=== PATIENT | female | born 1960 | race Caucasian/White ===

== ENCOUNTER → 2020-04-26 08:21 | Outpatient (BNVA) | payer OTHER, SELFPAY | PROVIDERS: PCP Internal Medicine; Visit Provider Nurse Practitioner Gerontology | DX: E11.65 Type 2 diabetes mellitus with hyperglycemia (principal); E78.5 Hyperlipidemia, unspecified; I10 Essential (primary) hypertension; E66.09 Other obesity due to excess calories; Z68.41 Body mass index [BMI] 40.0-44.9, adult | CPT/HCPCS: 82947 ==

== ENCOUNTER → 2020-05-02 15:31 | Outpatient (BNVA) | payer OTHER, SELFPAY | PROVIDERS: PCP Internal Medicine; Visit Provider Internal Medicine Cardiovascular Disease | DX: Z76.89 Persons encountering health services in other specified circumstances (principal) ==

== ENCOUNTER → 2020-05-27 12:54 | Outpatient (REF) | payer OTHER, SELFPAY ==
--- NOTE | 2020-05-27 12:58 | ECG_ITS ---
Hook-up date: 2020-05-27 13:04:00 Duration: 43:40:00 Test Indications: SVT Medications: 197737 QRS complexes 151 Ventricular ectopics which represent <1 % of total QRS comp. 6966 Supraventricular ectopics which represent 5 % of total QRS comp. * Paced QRS complexs which represent % of total QRS comp. VENTRICULAR ECTOPY 126 Isolated 7 Bigeminal Cycles 11 Couplets 1 Runs 3 Beats in Runs 3 Beats LONGEST at 202 BPM at 14:43:40 2020-05-27 3 Beats FASTEST at 202 BPM at 14:43:40 2020-05-27 SUPRAVENTRICULAR ECTOPY 4849 Isolated 725 Couplets 167 Runs 667 Beats in Runs 54 Beats LONGEST at 151 BPM at 17:21:17 2020-05-27 4 Beats FASTEST at 222 BPM at 16:31:31 2020-05-27 HEART RATES 57 MIN at 00:54:05 2020-05-28 91 AVG 190 MAX at 17:21:15 2020-05-27 LONGEST RR 1.1440 secs at 00:54:02 2020-05-28 S-T LEVELS Channel 1 - 128 mm at 13:04:00 2020-05-27 - 128 mm at 13:04:00 2020-05-27 Channel 2 - 128 mm at 13:04:00 2020-05-27 - 128 mm at 13:04:00 2020-05-27 Channel 3 - 128 mm at 03:22:31 -- - 128 mm at 03:22:31 Basic rhythm Normal sinus rhythm No long pause or profound bradycardia Occasional Premature ventricular complexes 2 episodes of NSVT, 3 beats at 202 bpm Frequent Premature atrial complexes Multiple short runs of SVT, longest 54 beats at 151 bpm. No diary submitted Referred By: Mateo Bhatia Overread By: CACHORRO RAZO MD
== END ==
LOC: HO.CARD 12:54
PROVIDERS: Visit Provider Internal Medicine Cardiovascular Disease
DX: I47.1 Supraventricular tachycardia (principal)
CPT/HCPCS: 93225; 93226

== ENCOUNTER 2020-06-27 10:22 | Outpatient (REF) | payer OTHER, SELFPAY | END 2020-06-27 10:23 | disposition home or self-care (01) | LOC: HO.LAB 10:22 | PROVIDERS: Visit Provider Internal Medicine | DX: Z20.828 Contact with and (suspected) exposure to other viral communicable diseases (principal) | CPT/HCPCS: 36415; C9803; U0003 ==

== ENCOUNTER → 2020-08-02 10:49 | Outpatient (BNVA) | payer OTHER, SELFPAY | PROVIDERS: PCP Internal Medicine; Visit Provider Nurse Practitioner Gerontology | DX: E11.65 Type 2 diabetes mellitus with hyperglycemia (principal); E78.5 Hyperlipidemia, unspecified; I10 Essential (primary) hypertension; E66.01 Morbid (severe) obesity due to excess calories; Z68.41 Body mass index [BMI] 40.0-44.9, adult | CPT/HCPCS: 82947 ==

== ENCOUNTER → 2020-09-12 11:04 | Outpatient (BNVA) | payer OTHER, SELFPAY | PROVIDERS: PCP Internal Medicine; Visit Provider Internal Medicine Cardiovascular Disease | DX: I47.1 Supraventricular tachycardia (principal); I10 Essential (primary) hypertension | CPT/HCPCS: 93005 ==

== ENCOUNTER → 2020-09-13 15:04 | Outpatient (BNV) | payer MEDICARE, OTHER, SELFPAY | PROVIDERS: PCP Internal Medicine; Visit Provider Internal Medicine Medical Oncology | DX: C88.4 Extranodal marginal zone B-cell lymphoma of mucosa-associated lymphoid tissue [MALT-lymphoma] (principal) | CPT/HCPCS: 99213; 99214 ==

== ENCOUNTER → 2020-09-20 12:14 | Outpatient (BNVA) | payer OTHER, SELFPAY | PROVIDERS: PCP Internal Medicine; Visit Provider Nurse Practitioner Gerontology | DX: E11.65 Type 2 diabetes mellitus with hyperglycemia (principal); E78.5 Hyperlipidemia, unspecified; I10 Essential (primary) hypertension; E66.01 Morbid (severe) obesity due to excess calories; Z68.41 Body mass index [BMI] 40.0-44.9, adult | CPT/HCPCS: 82947 ==

== ENCOUNTER → 2020-10-24 14:47 | Outpatient (REF) | payer OTHER, SELFPAY ==
--- NOTE | 2020-10-24 14:50 | CA_ITS ---
Transthoracic Echocardiogram Patient (Last, First, Middle): Va Noel J Gender: Female Date of : 1960 Age: 60 Procedure Date: 10/24/2020 Procedure Type: Transthoracic Echocardiogram Location: OP Height: 170.18 cm Weight: 113.4 kg BSA: 2.22 m2 Heart Rate: bpm BP: 110 / 60 mmHg Senior Laboratory Technician: JASON Referring MD: Mateo Bhatia MD Symptoms: I47.1 - Supraventricular tachycardia Study Quality: Technically Difficult ECG Rhythm: Sinus Conclusions: - The left ventricular systolic function is normal. The visually estimated ejection fraction is between 65-70%. - There is mild mitral annular calcification. - No obvious valvular pathology seen on this study. Findings Procedure Information The patient declines contrast. Left Ventricle Normal left ventricular cavity size. There is mildly increased left ventricular wall thickness. The left ventricular systolic function is normal. The visually estimated ejection fraction is between 65-70%. There is no evidence of regional wall motion abnormalities. Diastolic function is normal for age. Right Ventricle Normal right ventricular cavity size and systolic function. Atria Both atria are normal in size. Aortic Valve There is a normal trileaflet aortic valve. There is no aortic valve stenosis. There is no aortic valve regurgitation. Mitral Valve The mitral valve appears normal. There is mild mitral annular calcification. There is mild mitral valve regurgitation. There is no mitral valve stenosis. Pulmonic Valve The pulmonic valve was not well visualized. Tricuspid Valve There is trace tricuspid valve regurgitation. The pulmonary artery systolic pressure is normal. Great Vessels The aortic annulus, sinuses of valsalva, and asc aorta are normal in size. Venous The inferior vena cava is mildly dilated and collapses greater than 50% with inspiration. Pericardium/Pleural There is no evidence of pericardial effusion. Prior Study Comparison No significant change compared to prior study dated: 07/27/2019. Recommendations, Care & Conclusions No obvious valvular pathology seen on this study. Measurements 2D Linear Measurements IVSd: 1.24 0.6-0.9/0.6-1.0 cm LVIDd: 4.37 3.9-5.3/4.2-5.9 cm LVIDd Index: 1.97 2.4-3.2/2.2-3.1 cm/m2 LVIDs: 2.75 2.0-3.6 cm LVPWd: 1.22 0.7-1.1 cm Ao Root: 3.50 2.1-3.5 cm LA Diam: 4.20 2.7-3.8/3.0-4.0 cm LAIDs Index: 1.89 1.5-2.3 cm/m2 LV Mass: 244.56 67-162/88-224 g LV Mass Index: 110.16 43-95/49-115 g/m2 LVOT Diam: 2.10 3.0+(-)1.3 cm Mitral Valve MV Pk E: 1.15 MV PK A: 0.89 MV Decel Time: 162.00 E/A: 1.30 E'Lateral: 9.67 E'Medial: 6.48 E/E' Med: 17.70 E/E' Lat: 11.90 PHT: 47.00 MVA PHT: 4.68 Decel Wake: 7.13 Aortic Valve AoV Pk Noble: 1.70 AoV Mn Noble: 1.01 AoV VTI: 0.32 AoV Pk Grad: 12.00 Aov Mn Grad: 5.00 SAMMIE Cont.VTI: 2.08 LVOT LVOT Pk Noble: 0.91 LVOT Mn Noble: 0.67 LVOT VTI: 0.19 LVOT Pk Grad: 3.00 LVOT Mn Grad: 2.00 LVOT Diam: 2.10 LVOT Area: 3.46 Diastolic Function MV Pk E: 1.15 MV Pk A: 0.89 E/A: 1.30 E'Medial: 6.48 E/E' Med: 17.70 E' Laterial: 9.67 E/E' Lat: 11.90 Tricuspid Valve TR Pk Noble: 2.52 TR Pk Grad: 25.00 RA Press: 8.00 RVSP: 33.00 Great Vessels Aorta Ao Root-2D: 3.50 2.0-3.7 cm Ao Asc: 3.20 2.1-3.4 cm Ao Arch: 3.00 Updated in Other Vendor System with Status of Final Nate Lal MD electronically signed on 10/26/2020 3:33:06 PM with status of Final
== END ==
LOC: HO.CARD 14:47
PROVIDERS: Visit Provider Internal Medicine Cardiovascular Disease
DX: I47.1 Supraventricular tachycardia (principal)
CPT/HCPCS: 93306

== ENCOUNTER → 2020-12-27 10:48 | Outpatient (BNVA) | payer OTHER, SELFPAY | PROVIDERS: PCP Internal Medicine; Visit Provider Nurse Practitioner Gerontology | DX: E11.65 Type 2 diabetes mellitus with hyperglycemia (principal); E78.5 Hyperlipidemia, unspecified; I10 Essential (primary) hypertension; E66.01 Morbid (severe) obesity due to excess calories; Z68.41 Body mass index [BMI] 40.0-44.9, adult | CPT/HCPCS: 82947 ==

== ENCOUNTER 2021-05-27 10:43 | Outpatient (REF) | payer OTHER, SELFPAY ==
[2021-05-27 11:07] LABS: Estimated Average Glucose 189 mg/dL; Hemoglobin A1c % 8.2 %
[2021-05-27 11:19] LABS: Alanine Aminotransferase 26 U/L (0-31); Albumin Level 4.1 g/dL (3.5-5.0); Alkaline Phosphatase 67 U/L (39-117); Aspartate Amino Transferase 22 U/L (5-31); Bilirubin Direct 0.2 mg/dL (0.0-0.5); Bilirubin Total 0.7 mg/dL (0.0-1.0); Cholesterol 183 mg/dL; Glucose Fasting 264 mg/dL (60-99); HDL Cholesterol 30 mg/dL; LDL Cholesterol Calculated 130 mg/dl; Total Protein 7.5 g/dL (6.5-8.0); Triglycerides 118 mg/dL
[2021-05-27 11:25] LABS: Creatinine Urine 55.23 mg/dL; Microalbum/Creatinine Ratio Ur 18.1 ug/mg cr
[2021-05-27 11:51] LABS: Reflex LDLD? No
== END 2021-05-27 10:44 | disposition home or self-care (01) ==
LOC: HO.LNP 10:43
PROVIDERS: Visit Provider Internal Medicine
DX: E11.65 Type 2 diabetes mellitus with hyperglycemia (principal); E78.00 Pure hypercholesterolemia, unspecified
CPT/HCPCS: 80061; 80076; 82043; 82947; 83036

== ENCOUNTER → 2021-06-27 11:59 | Outpatient (BNVA) | payer OTHER, SELFPAY | PROVIDERS: PCP Internal Medicine; Visit Provider Nurse Practitioner Gerontology | DX: E11.65 Type 2 diabetes mellitus with hyperglycemia (principal); E78.5 Hyperlipidemia, unspecified; E66.01 Morbid (severe) obesity due to excess calories; I10 Essential (primary) hypertension; Z68.41 Body mass index [BMI] 40.0-44.9, adult; Z79.4 Long term (current) use of insulin; Z79.84 Long term (current) use of oral hypoglycemic drugs | CPT/HCPCS: 82947 ==

== ENCOUNTER 2021-09-13 07:25 | Outpatient (REF) | payer OTHER, SELFPAY ==
[2021-09-13 08:41] LABS: Alanine Aminotransferase 16 U/L (0-31); Albumin Level 3.8 g/dL (3.5-5.0); Alkaline Phosphatase 64 U/L (39-117); Anion Gap 9 (12-20); Aspartate Amino Transferase 17 U/L (5-31); Bilirubin Total 0.4 mg/dL (0.0-1.0); Blood Urea Nitrogen 13 mg/dL (9-16); Calcium 9.5 mg/dL (8.4-10.2); Carbon Dioxide 26 mmol/L (22-29); Chloride 111 mmol/L (96-108); Cholesterol 98 mg/dL; Estimated Glomerular Filt Rate > 60; Glucose Fasting 92 mg/dL (60-99); HDL Cholesterol 25 mg/dL; LDL Cholesterol Calculated 59 mg/dl; Potassium 4.4 mmol/L (3.3-5.1); Sodium 142 mmol/L (135-145); Total Protein 6.8 g/dL (6.5-8.0); Triglycerides 72 mg/dL
[2021-09-14 07:06] LABS: LDL Cholesterol Direct 59 mg/dL (<100)
== END 2021-09-13 07:26 | disposition home or self-care (01) ==
LOC: HO.LAB 07:25
PROVIDERS: PCP Internal Medicine; Visit Provider Nurse Practitioner Gerontology
DX: E11.65 Type 2 diabetes mellitus with hyperglycemia (principal)
CPT/HCPCS: 36415; 80053; 80061; 83721

== ENCOUNTER → 2021-10-03 10:14 | Outpatient (BNVA) | payer OTHER, SELFPAY | PROVIDERS: PCP Internal Medicine; Visit Provider Nurse Practitioner Gerontology | DX: E11.65 Type 2 diabetes mellitus with hyperglycemia (principal); I10 Essential (primary) hypertension; C85.83 Other specified types of non-Hodgkin lymphoma, intra-abdominal lymph nodes; E78.5 Hyperlipidemia, unspecified; E66.01 Morbid (severe) obesity due to excess calories; Z68.41 Body mass index [BMI] 40.0-44.9, adult; Z79.4 Long term (current) use of insulin; Z79.899 Other long term (current) drug therapy | CPT/HCPCS: 82947; 83036 ==

== ENCOUNTER 2021-11-27 10:44 | Outpatient (REF) | payer OTHER, SELFPAY ==
[2021-11-27 11:16] LABS: Estimated Average Glucose 177 mg/dL; Hemoglobin A1c % 7.8 %
[2021-11-27 11:27] LABS: Alanine Aminotransferase 18 U/L (0-31); Albumin Level 4.1 g/dL (3.5-5.0); Alkaline Phosphatase 63 U/L (39-117); Aspartate Amino Transferase 17 U/L (5-31); Bilirubin Direct 0.2 mg/dL (0.0-0.5); Bilirubin Total 0.5 mg/dL (0.0-1.0); Cholesterol 96 mg/dL; Glucose Fasting 116 mg/dL (60-99); HDL Cholesterol 26 mg/dL; LDL Cholesterol Calculated 56 mg/dl; Total Protein 7.2 g/dL (6.5-8.0); Triglycerides 73 mg/dL
[2021-11-27 12:25] LABS: Reflex LDLD? No
== END 2021-11-27 10:45 | disposition home or self-care (01) ==
LOC: HO.LNP 10:44
PROVIDERS: Visit Provider Internal Medicine
DX: E11.65 Type 2 diabetes mellitus with hyperglycemia (principal); E78.00 Pure hypercholesterolemia, unspecified
CPT/HCPCS: 80061; 80076; 82947; 83036

== ENCOUNTER 2022-12-01 14:37 | Outpatient (REF) | payer OTHER, SELFPAY ==
[2022-12-01 15:13] LABS: Appearance Urine Clear; Color Urine Yellow; Glucose Urine UA Negative (Negative); Leukocyte Esterase Urine Trace (Negative); Nitrite Urine Negative (Negative); PH 6.5 (5.0-9.0); Specific Gravity - Urine <= 1.005 (1.005-1.025); UMIC TRIGGER UACC YES; Urine Blood Negative (Negative); Urine Ketones Negative (Negative); Urine Protein Negative (Neg-Trace)
[2022-12-01 15:18] LABS: Bacteria Urine None Seen (None Seen); Hyaline Casts Urine 0-2 /LPF (0-2); RBC Urine 0-2 /HPF (0-2); Squamous Epithelial Cell Urine 0-2 /HPF (0-2); WBC Urine 0-5 /HPF (0-5)
[2022-12-01 15:29] LABS: Basophils Absolute Auto 0.1 X10*3/uL (0.0-0.2); Basophils Percent Auto 0.8 % (0-2); Eosinophils Absolute Auto 0.3 X10*3/uL (0.0-0.4); Eosinophils Percent Auto 2.7 % (0-4); Hematocrit 45.7 % (37.0-47.0); Hemoglobin 14.2 g/dl (12.0-16.0); Imm Gran Abs Auto 0.03 X10*3/uL (0.00-0.03); Imm Gran Pct Auto 0.3 % (0.0-0.4); Lymphocytes Absolute Auto 2.6 X10*3/uL (1.2-4.9); Lymphocytes Percent Auto 22.9 % (20-40); MANUAL DIFF FLAG SCAN; Mean Corpuscular HGB Conc 31.1 g/dl (31.0-35.0); Mean Corpuscular Volume 96.4 fL (80.0-98.0); Mean Platelet Volume 13.2 fL (9.4-12.3); Monocytes Absolute Auto 0.8 X10*3/uL (0.1-1.2); Monocytes Percent Auto 7.1 % (2-11); Neutrophils Absolute Auto 7.7 x10*3/uL (2.0-8.3); Neutrophils Percent Auto 66.2 % (45-73); PLT CLUMP 1; Red Blood Count 4.74 X10*6/uL (4.20-5.50); Red Cell Distribution Width 14.2 % (11.0-16.0); SCAN SMEAR FLAG 1
[2022-12-01 15:34] LABS: Estimated Average Glucose 212 mg/dL
[2022-12-01 15:46] LABS: Creatinine Urine 16.24 mg/dL; Microalbum/Creatinine Ratio Ur 55.4 ug/mg cr
[2022-12-01 15:47] LABS: Alanine Aminotransferase 18 U/L (0-31); Albumin Level 4.1 g/dL (3.5-5.0); Alkaline Phosphatase 65 U/L (39-117); Anion Gap 16 (12-20); Aspartate Amino Transferase 19 U/L (5-31); Bilirubin Direct 0.2 mg/dL (0.0-0.5); Bilirubin Total 0.7 mg/dL (0.0-1.0); Blood Urea Nitrogen 9 mg/dL (9-16); Calcium 10.4 mg/dL (8.4-10.2); Carbon Dioxide 26 mmol/L (22-29); Chloride 107 mmol/L (96-108); Cholesterol 108 mg/dL; Estimated Glomerular Filt Rate > 60; Glucose Fasting 101 mg/dL (60-99); HDL Cholesterol 27 mg/dL; LDL Cholesterol Calculated 58 mg/dl; Potassium 4.5 mmol/L (3.3-5.1); Sodium 144 mmol/L (135-145); Total Protein 7.3 g/dL (6.5-8.0); Triglycerides 118 mg/dL
[2022-12-01 16:05] LABS: Platelet Count 154 X10*3/uL (160-400); White Blood Count 11.6 X10*3/uL (4.8-10.8)
[2022-12-01 16:08] LABS: SLIDE REVIEW VERIFIED
== END 2022-12-01 14:38 | disposition home or self-care (01) ==
LOC: HO.LNP 14:37
PROVIDERS: Visit Provider Internal Medicine
DX: Z00.00 Encounter for general adult medical examination without abnormal findings (principal); E11.65 Type 2 diabetes mellitus with hyperglycemia; R79.89 Other specified abnormal findings of blood chemistry; E78.00 Pure hypercholesterolemia, unspecified
CPT/HCPCS: 80053; 80061; 80076; 81001; 82043; 82248; 83036; 85025

== ENCOUNTER 2023-01-01 11:28 | Outpatient (REF) | payer OTHER, SELFPAY | END 2023-01-01 11:29 | disposition home or self-care (01) | LOC: HO.LNP 11:28 | PROVIDERS: Visit Provider Internal Medicine | DX: E83.52 Hypercalcemia (principal) | CPT/HCPCS: 82310 ==

== ENCOUNTER 2023-01-08 09:49 | Outpatient (REF) | payer OTHER, SELFPAY ==
[2023-01-08 11:13] LABS: Alanine Aminotransferase 18 U/L (0-31); Albumin Level 3.9 g/dL (3.5-5.0); Alkaline Phosphatase 61 U/L (39-117); Aspartate Amino Transferase 21 U/L (5-31); Bilirubin Direct 0.2 mg/dL (0.0-0.5); Bilirubin Total 0.7 mg/dL (0.0-1.0); Blood Urea Nitrogen 9 mg/dL (9-16); Carbon Dioxide 26 mmol/L (22-29); Chloride 107 mmol/L (96-108); Estimated Glomerular Filt Rate > 60; Glucose Random 199 mg/dL (60-115); Lipase 6 U/L (8-78); Potassium 4.2 mmol/L (3.3-5.1); Sodium 139 mmol/L (135-145)
[2023-01-08 11:25] LABS: Amylase 35 U/L (28-100); Anion Gap 14 (12-20)
== END 2023-01-08 09:50 | disposition home or self-care (01) ==
LOC: HO.LAB 09:49
PROVIDERS: PCP Internal Medicine; Visit Provider Internal Medicine
DX: R11.10 Vomiting, unspecified (principal); R10.13 Epigastric pain
CPT/HCPCS: 36415; 80048; 80076; 82150; 83690

== ENCOUNTER 2023-01-13 14:50 | Outpatient (REF) | payer OTHER, SELFPAY ==
[2023-01-13 15:02] LABS: MANUAL DIFF FLAG NO
[2023-01-13 15:59] LABS: Basophils Absolute Auto 0.1 X10*3/uL (0.0-0.2); Basophils Percent Auto 0.6 % (0-2); Eosinophils Absolute Auto 0.2 X10*3/uL (0.0-0.4); Eosinophils Percent Auto 2.5 % (0-4); Hematocrit 38.4 % (37.0-47.0); Hemoglobin 12.4 g/dl (12.0-16.0); Imm Gran Abs Auto 0.03 X10*3/uL (0.00-0.03); Imm Gran Pct Auto 0.4 % (0.0-0.4); Lymphocytes Absolute Auto 2.6 X10*3/uL (1.2-4.9); Lymphocytes Percent Auto 31.8 % (20-40); Mean Corpuscular HGB Conc 32.3 g/dl (31.0-35.0); Mean Corpuscular Hemoglobin 29.7 pg (27.0-33.0); Mean Corpuscular Volume 92.1 fL (80.0-98.0); Mean Platelet Volume 12.8 fL (9.4-12.3); Monocytes Absolute Auto 0.7 X10*3/uL (0.1-1.2); Monocytes Percent Auto 8.3 % (2-11); Neutrophils Absolute Auto 4.6 x10*3/uL (2.0-8.3); Neutrophils Percent Auto 56.4 % (45-73); Platelet Count 179 X10*3/uL (160-400); Red Blood Count 4.17 X10*6/uL (4.20-5.50); Red Cell Distribution Width 13.8 % (11.0-16.0); White Blood Count 8.1 X10*3/uL (4.8-10.8)
[2023-01-13 19:51] LABS: Alanine Aminotransferase 14 U/L (0-31); Albumin Level 3.9 g/dL (3.5-5.0); Alkaline Phosphatase 64 U/L (39-117); Anion Gap 16 (12-20); Aspartate Amino Transferase 15 U/L (5-31); Bilirubin Direct 0.2 mg/dL (0.0-0.5); Bilirubin Total 0.5 mg/dL (0.0-1.0); Blood Urea Nitrogen 16 mg/dL (9-16); Calcium 9.6 mg/dL (8.4-10.2); Carbon Dioxide 20 mmol/L (22-29); Chloride 104 mmol/L (96-108); Estimated Glomerular Filt Rate 57; Glucose Random 438 mg/dL (60-115); Lipase 5 U/L (8-78); Potassium 4.1 mmol/L (3.3-5.1); Sodium 136 mmol/L (135-145); Total Protein 7.1 g/dL (6.5-8.0)
[2023-01-14 05:48] LABS: Amylase 31 U/L (28-100)
== END 2023-01-13 14:51 | disposition home or self-care (01) ==
LOC: HO.LAB 14:50
PROVIDERS: PCP Internal Medicine; Visit Provider Internal Medicine
DX: R11.10 Vomiting, unspecified (principal); R10.13 Epigastric pain
CPT/HCPCS: 36415; 80048; 80076; 82150; 83690; 85025

== ENCOUNTER 2023-02-01 08:45 | Outpatient (REF) | payer OTHER, SELFPAY ==
[2023-02-01 09:01] LABS: MANUAL DIFF FLAG NO
[2023-02-01 09:06] LABS: Basophils Absolute Auto 0.1 X10*3/uL (0.0-0.2); Basophils Percent Auto 0.6 % (0-2); Eosinophils Absolute Auto 0.2 X10*3/uL (0.0-0.4); Eosinophils Percent Auto 2.3 % (0-4); Hematocrit 38.8 % (37.0-47.0); Hemoglobin 12.6 g/dl (12.0-16.0); Imm Gran Abs Auto 0.03 X10*3/uL (0.00-0.03); Imm Gran Pct Auto 0.3 % (0.0-0.4); Lymphocytes Absolute Auto 2.3 X10*3/uL (1.2-4.9); Lymphocytes Percent Auto 23.6 % (20-40); Mean Corpuscular HGB Conc 32.5 g/dl (31.0-35.0); Mean Corpuscular Volume 92.4 fL (80.0-98.0); Mean Platelet Volume 11.2 fL (9.4-12.3); Monocytes Absolute Auto 0.7 X10*3/uL (0.1-1.2); Monocytes Percent Auto 7.5 % (2-11); Neutrophils Absolute Auto 6.5 x10*3/uL (2.0-8.3); Neutrophils Percent Auto 65.7 % (45-73); Platelet Count 188 X10*3/uL (160-400); Red Cell Distribution Width 14.2 % (11.0-16.0); White Blood Count 9.9 X10*3/uL (4.8-10.8)
[2023-02-01 09:27] LABS: Alanine Aminotransferase 14 U/L (0-31); Albumin Level 3.9 g/dL (3.5-5.0); Alkaline Phosphatase 61 U/L (39-117); Anion Gap 11 (12-20); Aspartate Amino Transferase 16 U/L (5-31); Bilirubin Total 0.4 mg/dL (0.0-1.0); Blood Urea Nitrogen 9 mg/dL (9-16); Calcium 10.4 mg/dL (8.4-10.2); Carbon Dioxide 26 mmol/L (22-29); Chloride 110 mmol/L (96-108); Estimated Glomerular Filt Rate > 60; Glucose Random 104 mg/dL (60-115); Lactate Dehydrogenase 183 U/L (122-220); Potassium 4.4 mmol/L (3.3-5.1); Sodium 143 mmol/L (135-145); Total Protein 7.2 g/dL (6.5-8.0)
== END 2023-02-01 08:46 | disposition home or self-care (01) ==
LOC: HO.LAB 08:45
PROVIDERS: PCP Internal Medicine; Visit Provider Internal Medicine Medical Oncology
DX: C88.4 Extranodal marginal zone B-cell lymphoma of mucosa-associated lymphoid tissue [MALT-lymphoma] (principal)
CPT/HCPCS: 36415; 80053; 83615; 85025

== ENCOUNTER 2023-04-26 06:09 | Day surgery (SDC) | payer OTHER, SELFPAY ==
[2023-04-23 08:14] VITALS: BMI 41.8
--- NOTE | 2023-04-23 09:55 | P.CONAN_ITS ---
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 (Acute) Junctional tachycardia (Acute) Type 2 diabetes mellitus with hyperglycemia, without long-term current use of insulin (Acute) Hyperlipidemia LDL goal <100 (Acute) Essential hypertension (Acute) Obesity due to excess calories (Acute) Past Medical History Medical History (Updated 04/23/23 @ 08:25 by Shannen Boo RN) Trigger finger Gallstone Interstitial cystitis Diabetes Obesity due to excess calories Junctional tachycardia Gastric lymphoma Hyperlipidemia LDL goal <100 Essential hypertension Family History Family History Father Cancer Mother Dementia Maternal Aunt Diabetes Maternal Uncle Diabetes Surgical History Surgical History (Updated 04/23/23 @ 08:26 by Shannen Boo RN) History of foot surgery Hx of shoulder surgery Hx of appendectomy Hx of colonoscopy Hx of hysterectomy Social History Social History Household Members: Family Household Members Other:: lives with mother who she takes care of Housing: House Are you a primary home care specialist to a significant other at home: Yes (mother) Do you presently have visiting nurse or other home services: No Alcohol intake: never Patient Tobacco Use Status: Former Tobacco user Years Smoked: 10 Use of substances other than those prescribed or required for medical reasons: No Have you been hit, kicked, punched, or otherwise hurt by someone within the past year? If so, by whom?: No Do you have thoughts of harming others: None Do you have a plan to hurt others: No Plan Do you have the means to hurt others: No Recently lost weight without trying: No Patient : No service: No Current occupational status: employed Meds Allergies Allergy/AdvReac Type Severity Reaction Status Date / Time No Known Allergies Allergy Verified 02/01/23 09:04 [No Known Allergies*] Home Medications Medication Instructions Recorded Confirmed Last Taken Type pen needle, diabetic 32 gauge x #50 ea 04/26/20 02/01/23 Unknown History lisinopril 20 mg tablet 10 mg PO DAILY 02/01/23 04/23/23 Unknown History ibuprofen-diphenhydramine citrate 2 cap PO BEDTIME PRN Insomnia 04/23/23 04/23/23 Unknown History 200 mg-38 mg tablet (Advil PM) insulin glargine 100 unit/mL (3 30 unit subcut DAILY 04/23/23 04/23/23 Unknown History mL) subcutaneous pen (Lantus Solostar U-100 Insulin) insulin lispro-aabc 100 unit/mL 25 - 50 unit subcut TID 04/23/23 04/23/23 Unknown History subcutaneous pen (Lyumjev KwikPen U-100 Insulin) omeprazole 40 mg capsule,delayed 40 mg PO DAILY 04/23/23 04/23/23 Unknown History release Exam Exam Date and Time: April 23, 2023 0955 Height,Weight and Vital Signs: Height 5 ft 3 in Weight 107.048 kg Pertinent Lab Results Pertinent Lab Results: Laboratory Tests 02/01/23 08:59 WBC 9.9 Hgb 12.6 Hct 38.8 Plt Count 188 Sodium 143 Potassium 4.4 Chloride 110 H Carbon Dioxide 26 BUN 9 Creatinine 0.78 Assessment and Plan Assessment Anesthesia Assessment: Chart Reviewed
[2023-04-26 07:06] LABS: Glucose, Whole Blood 151 mg/dL (60-115)
[2023-04-26 07:09] VITALS: BP 133/70; PULSE 102; RESP 18; TEMP 36.8; O2SAT 98
[2023-04-26] MEDS: Lactated Ringers 1,000 ML 100 ML IVCONT (07:15)
--- NOTE | 2023-04-26 07:37 | HO.ANESPROP2 ---
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 (Acute) Junctional tachycardia (Acute) Type 2 diabetes mellitus with hyperglycemia, without long-term current use of insulin (Acute) Hyperlipidemia LDL goal <100 (Acute) Essential hypertension (Acute) Obesity due to excess calories (Acute) Past Medical History Medical History Trigger finger Gallstone Interstitial cystitis Diabetes Obesity due to excess calories Junctional tachycardia Gastric lymphoma Hyperlipidemia LDL goal <100 Essential hypertension Functional capacity: independent ambulation Patient : No Family History Family History Father Cancer Mother Dementia Maternal Aunt Diabetes Maternal Uncle Diabetes Family history of problems with anesthesia: No Surgical History Surgical History History of foot surgery Hx of shoulder surgery Hx of appendectomy Hx of colonoscopy Hx of hysterectomy History of Problems with Anesthesia: No Social History Social History Household Members: Family Household Members Other:: lives with mother who she takes care of Housing: House Are you a primary healthcare network pricing consultant to a significant other at home: Yes (mother) Do you presently have visiting nurse or other home services: No Alcohol intake: never Patient Tobacco Use Status: Former Tobacco user Years Smoked: 10 service: No Current occupational status: employed Meds Allergies Allergy/AdvReac Type Severity Reaction Status Date / Time No Known Allergies Allergy Verified 02/01/23 09:04 [No Known Allergies*] Active Medications: Current Medications Lactated Ringer's (Lr) 1,000 mls @ 100 mls/hr IVCONT .Q10H SARAH Last Admin: 04/26/23 07:15 Dose: 100 mls/hr Sodium Biphosphate/Sodium Phosphate (Sodium Phosphate,[place]-Dibasic 133 Ml Enema) 133 ml MD ONCE PRN PRN Reason: Poor Colonoscopy Prep Results Home Medications Medication Instructions Recorded Confirmed Last Taken Type pen needle, diabetic 32 gauge x #50 ea 04/26/20 02/01/23 Unknown History lisinopril 20 mg tablet 10 mg PO DAILY 02/01/23 04/23/23 Unknown History ibuprofen-diphenhydramine citrate 2 cap PO BEDTIME PRN Insomnia 04/23/23 04/23/23 Unknown History 200 mg-38 mg tablet (Advil PM) insulin glargine 100 unit/mL (3 30 unit subcut DAILY 04/23/23 04/23/23 Unknown History mL) subcutaneous pen (Lantus Solostar U-100 Insulin) insulin lispro-aabc 100 unit/mL 25 - 50 unit subcut TID 04/23/23 04/23/23 Unknown History subcutaneous pen (Lyumjev KwikPen U-100 Insulin) omeprazole 40 mg capsule,delayed 40 mg PO DAILY 04/23/23 04/23/23 Unknown History release Exam Exam Date and Time: April 26, 2023 0737 Height,Weight and Vital Signs: Height 5 ft 3 in Weight 107.048 kg Last Vital Signs Temp 98.2 F 04/26/23 07:09 Pulse 102 H 04/26/23 07:09 Resp 18 04/26/23 07:09 BP 133/70 04/26/23 07:09 Pulse Ox 98 04/26/23 07:09 O2 Del Method Room Air 04/26/23 07:09 Pertinent Lab Results Pertinent Lab Results: Laboratory Tests 04/26/23 07:02 POC Glucose 151 H Airway Mallampati Class: III TM Dist: >3cm Neck ROM: Full Heart: RRR Lungs: CTA Assessment and Plan Final Anesthetic Review Family History of Problems with Anesthesia: No History of Problems with Anesthesia: No ASA Class: III Final Preanesthetic Review: Meds/Allgs Chart Reviewed, Consent Obtained/Reviewed and Anes Risks/Benef Reviewed Patient Risk: Low Procedure Risk: Low Anesthetic Plan Anesthetic Plan: MAC: Disposition: Standard PACU
--- NOTE | 2023-04-26 08:50 | P.BOP_ITS ---
Brief Operative Note Date of Service: 04/26/23 Pre-op diagnosis: GERD, Screening Post-op diagnosis: other (Hiatal hernia, Gastritis, Colon polyps) Procedure: EGD with biopsies; Colonoscopy to the cecum and TI with hot snare polypectomy x 5 Surgeon: Ata Houston MD Anesthesia: MAC Was an [employer] Head Inspector And Adjuster used for this Procedure?: No Estimated blood loss (mL): 2.0 Pathology: other (A. Gastric antrum B. EG Junction at 36cm C. Transverse colon polyps x 2 D. Polyps at 60cm x 3) Condition: stable Disposition: PACU
[2023-04-26 08:52] VITALS: BP 86/47; PULSE 96; RESP 16; TEMP 36.3; O2SAT 97
[2023-04-26 09:07] VITALS: BP 134/88; PULSE 96; RESP 17; TEMP 36.3; O2SAT 98
--- NOTE | 2023-04-26 09:34 | HO.POSTANES ---
Post Anesthesia Evaluation Post Anesthesia Evaluation Date of Service: 04/26/23 Vital Signs: Vital Signs Temp Pulse Resp BP Pulse Ox O2 Del Method 04/26/23 09:07 97.4 F 96 17 134/88 98 Room Air 04/26/23 08:52 97.4 F 96 16 86/47 L 97 Room Air 04/26/23 07:09 98.2 F 102 H 18 133/70 98 Room Air Anesthesia: Monitored Mental Status: Awake Pain Control: Satisfactory Nausea/Vomiting: None Hydration: Adequate Anesthesia-Related Issues: No Anes. Related Issues
--- NOTE | 2023-04-26 21:49 | OP_ITS ---
DATE OF SERVICE: 04/26/2023 SURGEON: Ata Houston MD INDICATIONS: The patient presents for evaluation of gastroesophageal reflux, intermittent abdominal discomfort and nausea, and colorectal cancer screening. Full consent was obtained from her for both procedures, including risks of bleeding and perforation. PREOPERATIVE DIAGNOSIS: POSTOPERATIVE DIAGNOSIS: PROCEDURE PERFORMED: Esophagogastroduodenoscopy with biopsies, and colonoscopy to the cecum and terminal ileum with hot snare polypectomy x 5. ESTIMATED BLOOD LOSS: COMPLICATIONS: ANESTHESIA: Monitored anesthesia care. ASSISTANTS: SPECIMENS: PREOPERATIVE DIAGNOSES: Gastroesophageal reflux, abdominal discomfort, nausea, colorectal cancer screening. POSTOPERATIVE DIAGNOSES: Gastroesophageal reflux, abdominal discomfort, nausea, colorectal cancer screening, hiatal hernia, gastritis, colon polyps, diverticulosis, and internal hemorrhoids. DESCRIPTION OF PROCEDURE: The patient was placed in the left lateral decubitus position. The Olympus video gastroscope was passed in the posterior oropharynx and upper esophagus under direct vision. The scope was passed slowly to the distal esophagus. The gastroesophageal junction appeared at 36 cm. There was some slight irregularity, consistent with reflux and possibly small areas of Menjivar's mucosa. There was no evidence of any esophagitis, ulceration, nor mass. The scope entered the stomach. There was a small hiatal hernia. The scope was advanced to the pylorus and the duodenum was cannulated to the descending portion. The duodenum including the bulb appeared normal without mass or ulceration. The scope was withdrawn back to the stomach. The gastric antrum had some changes of gastritis with erythema and edema, but no ulceration or erosion. There was good peristalsis. The scope was retroflexed visualizing the proximal stomach carefully, which appeared normal, without any sign of mass or ulceration. The scope was straightened. Biopsies were obtained from the gastric antrum. The scope was withdrawn into the proximal stomach. In the proximal stomach there was an area of scarring consistent with what I suspect was the probable area of her previous lymphoma. However, there was no sign of any mass or ulceration here. The proximal stomach otherwise appeared normal. The scope was withdrawn back in the esophagus. Biopsies were obtained at the EG junction at 36 cm. The esophagus proximal to this appeared normal. The scope was withdrawn from the patient. She was turned around for the colonoscopy. The digital rectal exam revealed no abnormalities. The Olympus video pediatric colonoscope was entered into the rectum and advanced easily to the cecum. Once in the cecum, I did identify normal-appearing cecal pouch with appendiceal orifice and a normal-appearing ileocecal valve. The terminal ileum was cannulated and appeared normal. The scope withdrawn back in the colon. The entire cecum and ileocecal valve appeared normal. The scope was then slowly withdrawn assessing all mucosal surfaces carefully. For the most part, preparation was very good throughout the colon, but did require some irrigation and suctioning. In the transverse colon were 2, approximately 8 mm polyps, which were both removed with the hot snare and recovered by suction. Both polypectomy sites appeared clean, without any sign of residual polyp nor bleeding. At 60 cm were 3 polyps between 6 and 8 mm in size, which were all removed by hot snare polypectomy and recovered by suction. The polypectomy sites appeared clean, without any sign of residual polyp nor bleeding. I did not visualize any other polyps, colitis, or angiodysplasia. There was a mild amount of sigmoid diverticulosis. In the rectum, scope was retroflexed visualizing internal hemorrhoids, but no other pathology. The rectal mucosa appeared normal. Scope was straightened and withdrawn from the patient. She tolerated both procedures well and was returned to recovery area in stable condition. IMPRESSION: 1. Colon polyps. 2. Diverticulosis. 3. Internal hemorrhoids. 4. Gastritis. 5. Gastroesophageal reflux with associated hiatal hernia. 6. Rule out Menjivar's esophagus. 7. Proximal gastric scarring, consistent with her previous lymphoma. PLAN: The results of biopsies will be checked. She was advised to continue her daily omeprazole. She was advised not to use any aspirin and NSAIDs for 1 week. I would recommend a repeat colonoscopy in 5 years. She reports that she is presently feeling well from a GI standpoint. Therefore, I do not think any further testing is required. If things are stable, she will see me on a p.r.n. basis. MD ROSA Toscano/NIHARIKA / [id number] DEMETRI
== END 2023-04-26 09:42 | disposition home or self-care (01) ==
PROVIDERS: PCP Internal Medicine; Visit Provider Internal Medicine
PROC: (CPT 45385; principal; 2023-04-26 07:30)
DX: Z12.11 Encounter for screening for malignant neoplasm of colon (principal); Z86.010 Personal history of colon polyps; D12.3 Benign neoplasm of transverse colon; D12.4 Benign neoplasm of descending colon; K57.30 Diverticulosis of large intestine without perforation or abscess without bleeding; K64.8 Other hemorrhoids; K21.9 Gastro-esophageal reflux disease without esophagitis; K29.50 Unspecified chronic gastritis without bleeding; K44.9 Diaphragmatic hernia without obstruction or gangrene; E11.9 Type 2 diabetes mellitus without complications; I10 Essential (primary) hypertension; N30.10 Interstitial cystitis (chronic) without hematuria; Z79.4 Long term (current) use of insulin; Z79.899 Other long term (current) drug therapy; Z79.1 Long term (current) use of non-steroidal anti-inflammatories (NSAID); Z85.028 Personal history of other malignant neoplasm of stomach; Z87.891 Personal history of nicotine dependence
CPT/HCPCS: 45385; 43239; 82947; 88305; 88342

== ENCOUNTER 2023-05-25 12:32 | Outpatient (AMB) | payer OTHER, SELFPAY ==
--- NOTE | 2023-05-25 12:53 | A.OFFVIS_ITS ---
Intake Vital Signs 05/25/23 12:54 Height 5 ft 5 in Weight 238 lb 15.697 oz BMI 39.8 BP 124/52 L Blood Pressure Location Lt brachial Position Sitting Pulse 97 Intake Visit Reasons: junctional tachycardia per Dr Rojas/last [id number] Practical Nursing Instructor Required: No Allergies No Known Allergies [No Known Allergies*] Allergy (Verified 05/25/23 12:55) Medication List - Last Reconciled 05/25/23 by Jennifer Teresa NP-C blood-glucose meter,continuous (Dexcom G6 Head Of Mathematics) As directed blood-glucose sensor (Dexcom G6 Sensor device) As directed every 10 days blood-glucose transmitter (Dexcom G6 Transmitter device) As directed one every 3 months insulin glargine (Lantus Solostar U-100 Insulin) 30 units subcut DAILY insulin lispro-aabc (Lyumjev KwikPen U-100 Insulin) 25 - 50 units subcut TID lisinopril 10 mg PO DAILY metoprolol tartrate 25 mg PO TID 90 days omeprazole 40 mg PO DAILY pen needle, diabetic As directed rosuvastatin 40 mg PO DAILY HPI junctional tachycardia per Dr Rojas/last [id number] HPI Details Mandy is a 62-year-old female past medical history of hypertension, hyperlipidemia, diabetes, morbid obesity, gastric lymphoma, junctional tachycardia who presents for cardiology follow-up. Her last prior visit to our office was 09/12/2020. Today she reports that she had a colonoscopy recently. She says she was told that she had junctional tachycardia and irregular heartbeat during her procedure. She does not feel any heart palpitations ever. She denies any chest discomfort at rest or with activity. No shortness of breath, presyncope, syncope, PND, orthopnea or edema. She is taking her meds as directed. She has been taking the metoprolol 3 times daily consistently since her last visit here. She works full-time as a documentation consultant (quality assurance assessor) and takes care of her elderly mother with dementia. She describes herself as being active. [facility] Medical History Trigger finger Gallstone Interstitial cystitis Diabetes Obesity due to excess calories Junctional tachycardia Gastric lymphoma Hyperlipidemia LDL goal <100 Essential hypertension Surgical History History of foot surgery Hx of shoulder surgery Hx of appendectomy Hx of colonoscopy Hx of hysterectomy Family History Father Cancer Mother Dementia Maternal Aunt Diabetes Maternal Uncle Diabetes Social History Household Members: Family Household Members Other:: lives with mother who she takes care of Housing: House Are you a primary healthcare manager to a significant other at home: Yes (mother) Do you presently have visiting nurse or other home services: No Alcohol intake: never Patient Tobacco Use Status: Former Tobacco user Cigarettes Per Day: 10 Years Smoked: 10 service: No Current occupational status: employed Review of Systems Const All systems reviewed & are unremarkable except as noted in HPI and below Reports fatigue ENT Denies dizziness Card Denies chest pain, Denies chest pain at rest, Denies chest pain with activity, Denies rapid heart rate, Denies pedal edema, Denies edema, Denies leg edema, Denies lightheadedness, Denies palpitations, Denies dyspnea, Denies dyspnea on exertion and Denies orthopnea Resp Denies cough, Denies dyspnea and Denies dyspnea on exertion GI Denies hematochezia and Denies change in stool character Musc Denies abnormal gait, Denies limited range of motion, Denies muscle cramps, Denies muscle weakness, Denies numbness, Denies radiating pain into limb, Denies stiffness and Denies tingling Neuro Denies abnormal gait, Denies dizziness, Denies numbness and Denies tingling Endo Reports fatigue and Denies palpitations Physical Exam Vital Signs: Last Vital Signs Pulse 97 05/25/23 12:54 BP 124/52 L 05/25/23 12:54 BMI result Body Mass Index 39.8 Const General: cooperative, healthy appearing, comfortable and no acute distress Orientation/consciousness: patient oriented x3 HEENT Head: Yes normal to inspection Eyes Sclerae: sclerae normal Neck Neck: Yes normal visual inspection and Yes no JVD Carotids: normal carotid upstroke Chest Chest palpation & inspection: normal inspection of the chest Resp Effort & Inspection: normal respiratory effort Auscultation: clear to auscultation bilaterally, no crackles, no rales, no rhonchi and no wheezes Cardio Jugular venous distension: no JVD Rate: regular rate Rhythm: regular rhythm Heart sounds: S1 normal heart sound present, S2 normal heart sound present, no murmurs and no rubs Peripheral pulses: Peripheral pulses 2+ throughout GI Inspection: Yes normal to inspection Skin General skin exam: no rashes or lesions noted Neuro General: patient oriented x3 Extrem General: Yes normal to inspection and No no pedal edema Psych Appearance: grossly normal Mental Status: mental status grossly normal Speech and movement: Normal speech and movement present Office Procedures EKG Details: Today, read by me, accelerated junctional, occasional PVC, to PACs, rate 97, can not exclude prior inferior and anterior infarcts, low voltage QRS across precordium, inverted T-waves inferiorly [id number], Complete Assessment & Plan Assessment & Plan (1) Junctional tachycardia: Code(s): I47.1 - Supraventricular tachycardia Plan: History of junctional tachycardia. Last seen in our office 09/12/2020. Has been on metoprolol 25 mg t.i.d. since then. Last echocardiogram 10/24/2020 showing EF 65-70%, no valve abnormalities and no regional wall motion abnormalities. She reports having issues with junctional tachycardia and irregular heartbeat during recent colonoscopy procedure. Notes of the procedure reviewed including anesthesia record and I do not see any tachycardic rates. There are strips scanned which show PACs and PVCs. Today she reports she does not feel any heart palpitations. She has no concerning symptoms overall. EKG done today showing accelerated junctional rhythm, rate 97, 1 PVC. At present will have her continue on current metoprolol. Will check Holter monitor to assess degree of arrhythmia. Will plan to adjust metoprolol to b.i.d. dosing for ease of usage following Holter. She does have concerns about the co-pay for the Holter monitor. She will look into this with her insurance company prior to having the monitor applied. Cardiology follow-up in 4-6 weeks, sooner if needed (2) Essential hypertension: Code(s): I10 - Essential (primary) hypertension Plan: History of hypertension. Well controlled at present time. No medication changes made. Orders: Orders ECG 3 day holter monitor Today I47.1 - Supraventricular tachycardia Coding Level of Care Code Est Pt Level 4 (23195) Diagnoses Junctional tachycardia I47.1 Essential hypertension I10 CPT Codes EKG - CPT: 38492-[id number], Complete ([id number]) Time Spent (min) 28
[2023-05-25 12:54] VITALS: BP 124/52; PULSE 97; BMI 39.8
== END 2023-05-25 13:27 | disposition home or self-care (01) ==
PROVIDERS: PCP Internal Medicine; Visit Provider Nurse Practitioner Family
DX: I47.1 Supraventricular tachycardia (principal); I10 Essential (primary) hypertension
CPT/HCPCS: 93010; 99214

== ENCOUNTER → 2023-05-25 12:32 | Outpatient (BNVA) | payer OTHER, SELFPAY | PROVIDERS: PCP Internal Medicine; Visit Provider Nurse Practitioner Family | DX: I47.10 Supraventricular tachycardia, unspecified (principal); I10 Essential (primary) hypertension | CPT/HCPCS: 93005 ==

== ENCOUNTER → 2023-06-02 14:20 | Outpatient (REF) | payer OTHER, SELFPAY ==
--- NOTE | 2023-06-02 14:23 | HM_ITS ---
Conclusion: 1. Patient was monitored for total period of 3 days 2. Baseline was normal sinus rhythm with average heart of 95 beats per minute 3. Frequent PACs noted with total burden of 5.6% with frequent short burst of SVTs, longest lasting 25 beats and the fastest at 186 beats per minute 4. Occasional PVCs noted with 1 episode of 4 beat nonsustained VT at 157 beats per minute 5. No significant pauses noted 6. No patient reported events MTDD
== END ==
LOC: HO.CARD 14:20
PROVIDERS: PCP Internal Medicine; Visit Provider Nurse Practitioner Family
DX: I47.10 Supraventricular tachycardia, unspecified (principal)
CPT/HCPCS: 93242

== ENCOUNTER → 2023-06-02 14:23 | Outpatient (BNV) | payer OTHER, SELFPAY | PROVIDERS: PCP Internal Medicine; Visit Provider Internal Medicine Cardiovascular Disease | DX: I49.1 Atrial premature depolarization (principal) | CPT/HCPCS: 93244 ==

== ENCOUNTER 2023-06-24 14:19 | Outpatient (AMB) | payer OTHER, SELFPAY ==
[2023-06-24 14:30] VITALS: BP 120/62; PULSE 87; BMI 39.2
--- NOTE | 2023-06-24 14:30 | MHC.OFFVIS ---
Intake Vital Signs 06/24/23 14:30 Height 5 ft 5 in Weight 235 lb 7.259 oz BMI 39.2 BP 120/62 Blood Pressure Location Lt brachial Position Sitting Pulse 87 Pulse Source Pulse Oximeter Intake Visit Reasons: 5 wk s/p holter Intake Note: 5 wk s/p holter/ pt its feeling fine, in the last two week she have been feeling more of the palpitations then usual. Shared Services And Outsourcing Manager Required: No Accompanied by: Self / Same As Patient Allergies No Known Allergies [No Known Allergies*] Allergy (Verified 05/25/23 12:55) Medication List - Last Reconciled 06/24/23 by Jennifer Teresa NP-C blood-glucose meter,continuous (Dexcom G6 Food And Nutrition Teacher) As directed blood-glucose sensor (Dexcom G6 Sensor device) As directed every 10 days blood-glucose transmitter (Dexcom G6 Transmitter device) As directed one every 3 months insulin glargine (Lantus Solostar U-100 Insulin) 30 units subcut DAILY insulin lispro-aabc (Lyumjev KwikPen U-100 Insulin) 25 - 50 units subcut TID lisinopril 10 mg PO DAILY metoprolol tartrate 50 mg PO BID 90 days omeprazole 40 mg PO DAILY pen needle, diabetic As directed rosuvastatin 40 mg PO DAILY HPI 5 wk s/p holter HPI Details Mandy is a 62-year-old female past medical history of hypertension, hyperlipidemia, diabetes, morbid obesity, gastric lymphoma, junctional tachycardia who presents for cardiology follow-up after recent Holter monitor. Today she reports that she had been sick with respiratory illness and was noticing some heart palpitations. She can feel her heart speed up suddenly and then return to normal. Episodes do not last long. She denies associated symptoms. No dizziness, presyncope, syncope, falls. No shortness of breath, PND, orthopnea or edema. No chest discomfort at rest or with activity. Overall has good activity tolerance. Taking meds as directed. [facility] Medical History Trigger finger Gallstone Interstitial cystitis Diabetes Obesity due to excess calories Junctional tachycardia Gastric lymphoma Hyperlipidemia LDL goal <100 Essential hypertension Surgical History History of foot surgery Hx of shoulder surgery Hx of appendectomy Hx of colonoscopy Hx of hysterectomy Family History Father Cancer Mother Dementia Maternal Aunt Diabetes Maternal Uncle Diabetes Social History Household Members: Family Household Members Other:: lives with mother who she takes care of Housing: House Are you a primary daycare provider to a significant other at home: Yes (mother) Do you presently have visiting nurse or other home services: No Alcohol intake: never Patient Tobacco Use Status: Former Tobacco user Cigarettes Per Day: 10 Years Smoked: 10 service: No Current occupational status: employed Review of Systems Const All systems reviewed & are unremarkable except as noted in HPI and below Denies chills, Denies fatigue, Denies fever(s), Denies frequent falls, Denies weakness, Denies weight gain and Denies weight loss ENT Denies dizziness Card Denies chest pain, Reports rapid heart rate, Denies leg edema, Denies lightheadedness, Denies palpitations, Denies dyspnea and Denies dyspnea on exertion Resp Denies cough, Denies dyspnea and Denies dyspnea on exertion GI Denies hematochezia Musc Denies abnormal gait, Denies muscle weakness, Denies numbness, Denies radiating pain into limb and Denies tingling Neuro Denies abnormal gait, Denies dizziness, Denies frequent falls, Denies numbness, Denies tingling and Denies weakness Endo Denies fatigue and Denies palpitations Physical Exam Vital Signs: Last Vital Signs Pulse 87 06/24/23 14:30 BP 120/62 06/24/23 14:30 BMI result Body Mass Index 39.2 Const General: cooperative, healthy appearing, comfortable and no acute distress Orientation/consciousness: patient oriented x3 Neck Neck: Yes normal visual inspection and Yes no JVD Resp Effort & Inspection: normal respiratory effort Auscultation: clear to auscultation bilaterally, no crackles, no rales, no rhonchi and no wheezes Cardio Jugular venous distension: no JVD Rate: regular rate Rhythm: regular rhythm Heart sounds: S1 normal heart sound present, S2 normal heart sound present, no murmurs and no rubs Neuro General: patient oriented x3 Extrem General: Yes normal to inspection and No no pedal edema Psych Appearance: grossly normal Mental Status: mental status grossly normal Speech and movement: Normal speech and movement present Assessment & Plan Assessment & Plan (1) Junctional tachycardia: Code(s): I47.1 - Supraventricular tachycardia Plan: History of junctional tachycardia. Previous seen in our office 09/12/2020. Then not seen again until last visit on 05/25/2023. Has been on metoprolol 25 mg t.i.d. over the last few years. She recently underwent a colonoscopy and reported having issues with junctional tachycardia and irregular heartbeat during her test. Notes of the procedure reviewed including anesthesia record and I do not see any tachycardic rates. There are strips scanned which show PACs and PVCs. On last visit an EKG showed accelerated junctional rhythm, rate 97, 1 PVC. Holter monitor done on 06/02/2023 for 3 days shows sinus rhythm with average heart rate 95, frequent PACs 5.6% of time, bursts of SVT, longest 25 beats at max rate of 186, 1 episode of 4 beat NSVT, rate 157. Last echo done 10/24/2020 showed EF 65-70%, no valve abnormality. Following Holter results her metoprolol was changed to 50 mg b.i.d.. Today she reports that she when she was ill recently she noticed some heart palpitations. Since her recovery and prior to that time she was not noticing heart palpitations. She has no presyncope, syncope, falls. Pulse is regular on examination today. Will continue on current medication. Cardiology follow-up in 4 months with EKG, sooner if needed. (2) Essential hypertension: Code(s): I10 - Essential (primary) hypertension Plan: History of hypertension. Well controlled at present time. No medication changes made. (3) SVT (supraventricular tachycardia): Code(s): I47.10 - Supraventricular tachycardia, unspecified Plan: As above Plan Time spent on chart review, documentation, interview assessment Coding Level of Care Code Est Pt Level 3 (43960) Diagnoses Junctional tachycardia I47.1 Essential hypertension I10 SVT (supraventricular tachycardia) I47.10 Time Spent (min) 24
== END 2023-06-24 15:19 | disposition home or self-care (01) ==
PROVIDERS: PCP Internal Medicine; Referring Provider Internal Medicine; Visit Provider Nurse Practitioner Family
DX: I47.10 Supraventricular tachycardia, unspecified (principal); I10 Essential (primary) hypertension
CPT/HCPCS: 99213

== ENCOUNTER → 2023-06-24 14:19 | Outpatient (BNVA) | payer OTHER, SELFPAY | PROVIDERS: PCP Internal Medicine; Visit Provider Nurse Practitioner Family ==

== ENCOUNTER 2023-10-21 08:16 | Outpatient (AMB) | payer MEDICARE, SELFPAY ==
[2023-10-21 08:23] VITALS: BP 106/64; PULSE 69; BMI 40.6
--- NOTE | 2023-10-21 08:23 | A.OFFVIS_ITS ---
Vital Signs 10/21/23 08:23 Height 5 ft 5 in Weight 244 lb 4.355 oz BMI 40.6 BP 106/64 Blood Pressure Location Lt brachial Position Sitting Pulse 69 Pulse Source Pulse Oximeter Intake Visit Reasons: Needed earlier appointment Tour Counselor Required: No Allergies No Known Allergies [No Known Allergies*] Allergy (Verified 10/21/23 08:25) Medication List - Last Reconciled 10/21/23 by MARI Kaufman blood-glucose meter,continuous (Dexcom G6 Supervisor Hydrochloric Area) As directed blood-glucose sensor (Dexcom G6 Sensor device) As directed every 10 days blood-glucose transmitter (Dexcom G6 Transmitter device) As directed one every 3 months insulin glargine (Lantus Solostar U-100 Insulin) 30 units subcut DAILY insulin lispro-aabc (Lyumjev KwikPen U-100 Insulin) 25 - 50 units subcut TID lisinopril 10 mg PO DAILY metoprolol tartrate 50 mg PO BID 90 days omeprazole 40 mg PO DAILY pen needle, diabetic As directed rosuvastatin 40 mg PO DAILY HPI HPI Needed earlier appointment: Details: Mandy is a 62-year-old female past medical history of hypertension, hyperlipidemia, diabetes, morbid obesity, gastric lymphoma, junctional tachycardia who presents for follow-up. Today she reports that she reports that she had heart palpitations 3 days ago followed by an episode of lightheadedness and a fall. She did not have injury. No loss of consciousness. She tells me that she changed her health insurance and has not had a PCP for a few months. She is running low on her insulin. She has been using it sparingly and tells me that her home sugars have been running elevated. Prior to a few days ago she had not been having any significant pa lpitations. She does feel intermittent heart palpitations today. No chest discomfort at rest or with activity. No other episodes of lightheadedness, no presyncope, syncope. No PND, orthopnea or edema. She has increased stress levels as she is now back to work part-time. She is taking her metoprolol as directed. [facility] Medical History Trigger finger Gallstone Interstitial cystitis Diabetes Obesity due to excess calories Junctional tachycardia Gastric lymphoma Hyperlipidemia LDL goal <100 Essential hypertension Surgical History History of foot surgery Hx of shoulder surgery Hx of appendectomy Hx of colonoscopy Hx of hysterectomy Family History Father Cancer Mother Dementia Maternal Aunt Diabetes Maternal Uncle Diabetes Social History Household Members: Family Household Members Other:: lives with mother who she takes care of Housing: House Are you a primary care consultant to a significant other at home: Yes (mother) Do you presently have visiting nurse or other home services: No Alcohol intake: never Patient Tobacco Use Status: Former Tobacco user Cigarettes Per Day: 10 Years Smoked: 10 service: No Current occupational status: employed Review of Systems Const All systems reviewed & are unremarkable except as noted in HPI and below ENT Denies dizziness Card Details: lightheaded on one occassion Denies chest pain, Denies chest pain at rest, Denies chest pain with activity, Reports rapid heart rate, Denies pedal edema, Denies edema, Denies leg edema, Denies lightheadedness, Denies palpitations, Reports dyspnea, Denies dyspnea on exertion and Denies orthopnea Resp Denies cough, Reports dyspnea and Denies dyspnea on exertion GI Denies hematochezia and Denies change in stool character Musc Denies abnormal gait, Denies limited range of motion, Denies muscle cramps, Denies muscle weakness, Denies numbness, Denies radiating pain into limb, Denies stiffness and Denies tingling Neuro Denies abnormal gait, Denies dizziness, Denies numbness and Denies tingling Endo Denies palpitations Physical Exam Vital Signs: Last Vital Signs Pulse 69 10/21/23 08:23 BP 106/64 10/21/23 08:23 BMI result Body Mass Index 40.6 Const General: cooperative, healthy appearing, comfortable and no acute distress Orientation/consciousness: patient oriented x3 Neck Neck: Yes normal visual inspection and Yes no JVD Resp Effort & Inspection: normal respiratory effort Auscultation: clear to auscultation bilaterally, no crackles, no rales, no rhonchi and no wheezes Cardio Jugular venous distension: no JVD Rate: regular rate Rhythm: regular rhythm Heart sounds: S1 normal heart sound present, S2 normal heart sound present, no murmurs and no rubs Neuro General: patient oriented x3 Extrem General: Yes normal to inspection and No no pedal edema Psych Appearance: grossly normal Mental Status: mental status grossly normal Speech and movement: Normal speech and movement present Office Procedures EKG Details: Today, read by me, sinus rhythm with PACs, can not exclude prior inferior, rate 81, QTC 418 milliseconds [id number], Complete Assessment & Plan Assessment & Plan (1) Junctional tachycardia: Code(s): I47.1 - Supraventricular tachycardia Category: Medical Plan: History of junctional tachycardia. Previous seen in our office 09/12/2020. Then not seen again until last visit on 05/25/2023. Has been on metoprolol 25 mg t.i.d. over the last few years. She recently underwent a colonoscopy and reported having issues with junctional tachycardia and irregular heartbeat during her test. Notes of the procedure reviewed including anesthesia record and I do not see any tachycardic rates. There are strips scanned which show PACs and PVCs. On follow-up visit an EKG showed accelerated junctional rhythm, rate 97, 1 PVC. Holter monitor done on 06/02/2023 for 3 days shows sinus rhythm with average heart rate 95, frequent PACs 5.6% of time, bursts of SVT, longest 25 beats at max rate of 186, 1 episode of 4 beat NSVT, rate 157. Last echo done 10/24/2020 showed EF 65-70%, no valve abnormality. Following Holter results her metoprolol was changed to 50 mg b.i.d.. Today she reports that her heart palpitations had been doing good then 3 days ago she noticed palpitations when at work, on break and when she stood up she felt lightheaded and did fall over. She had no presyncope, syncope. She has had intermittent feelings of palpitations since that time. EKG done today showing sinus rhythm with PACs, can not exclude old inferior infarct, rate 81. She is taking the metoprolol as directed. She also adds that her blood sugars have been running high as she has been using her insulin only sparingly. She has an appointment with Dr. Molina as her new PCP in 2 weeks. Her elevated blood sugars may be adding to her increased heart palpitations and her episode of lightheadedness. Informed her that if she is noticing increased heart palpitations she can take an additional dose of metoprolol in the mid day. Otherwise importance of pursuing good blood sugar control reviewed with her. Instructed on reduction in stimulants, getting adequate rest, maintaining good hydration. Cardiology follow-up in 3 months, sooner if needed. (2) Essential hypertension: Code(s): I10 - Essential (primary) hypertension Category: Medical Plan: History of hypertension. Well controlled at present time. No medication changes made. (3) SVT (supraventricular tachycardia): Code(s): I47.10 - Supraventricular tachycardia, unspecified Category: Medical Plan: As above Plan Time spent on chart review, documentation, interview assessment Coding Level of Care Code Est Pt Level 4 (38803) Diagnoses Junctional tachycardia I47.1 Essential hypertension I10 SVT (supraventricular tachycardia) I47.10 CPT Codes EKG - CPT: 32608-[id number], Complete ([id number]) Time Spent (min) 30
== END 2023-10-21 09:13 | disposition home or self-care (01) ==
PROVIDERS: PCP Internal Medicine; Visit Provider Nurse Practitioner Family
DX: I47.10 Supraventricular tachycardia, unspecified (principal); I10 Essential (primary) hypertension
CPT/HCPCS: 93010; 99214

== ENCOUNTER → 2023-10-21 08:16 | Outpatient (BNVA) | payer MEDICARE, SELFPAY | PROVIDERS: PCP Internal Medicine; Visit Provider Nurse Practitioner Family | DX: I47.10 Supraventricular tachycardia, unspecified (principal); I10 Essential (primary) hypertension | CPT/HCPCS: 93005; 99212 ==

== ENCOUNTER 2024-01-25 09:21 | Outpatient (AMB) | payer MEDICARE, SELFPAY ==
[2024-01-25 09:23] VITALS: BP 114/52; PULSE 67; BMI 40.9
--- NOTE | 2024-01-25 09:23 | MHC.OFFVIS ---
Vital Signs 01/25/24 09:23 Height 5 ft 5 in Weight 245 lb 9.519 oz BMI 40.9 BP 114/52 L Blood Pressure Location Lt brachial Position Sitting Pulse 67 Pulse Source Pulse Oximeter Intake Visit Reasons: 3m follow up Principal Associate Required: No Allergies No Known Allergies [No Known Allergies*] Allergy (Verified 01/25/24 09:24) Medication List - Last Reconciled 01/25/24 by Jennifer Teresa, JACQUE-C blood-glucose meter,continuous (Dexcom G6 Waterproofing Mixer) As directed blood-glucose sensor (Dexcom G6 Sensor device) As directed every 10 days blood-glucose transmitter (Dexcom G6 Transmitter device) As directed one every 3 months insulin glargine (Lantus Solostar U-100 Insulin) 30 units subcut DAILY insulin lispro-aabc (Lyumjev KwikPen U-100 Insulin) 25 - 50 units subcut TID lisinopril 10 mg PO DAILY metoprolol tartrate 50 mg PO BID 90 days omeprazole 40 mg PO DAILY pen needle, diabetic As directed rosuvastatin 40 mg PO DAILY HPI HPI 3m follow up: Details: Adelita is a 62-year-old female past medical history of hypertension, hyperlipidemia, diabetes, morbid obesity, gastric lymphoma, junctional tachycardia who presents for follow-up. Today she reports that she has been doing well since last visit in October. She has not noticed any dizziness, lightheadedness and no recurrent falls. She does have a PCP now and is on her insulin. She tells me her blood sugars are still getting regulated. No chest discomfort at rest or with activity. No presyncope, syncope. No PND, orthopnea or edema. She has increased stress levels as she is now back to work part-time. She is taking her metoprolol as directed. [facility] Medical History Trigger finger Gallstone Interstitial cystitis Diabetes Obesity due to excess calories Junctional tachycardia Gastric lymphoma Hyperlipidemia LDL goal <100 Essential hypertension Surgical History History of foot surgery Hx of shoulder surgery Hx of appendectomy Hx of colonoscopy Hx of hysterectomy Family History Father Cancer Mother Dementia Maternal Aunt Diabetes Maternal Uncle Diabetes Social History Household Members: Family Household Members Other:: lives with mother who she takes care of Housing: House Are you a primary health care analyst to a significant other at home: Yes (mother) Do you presently have visiting nurse or other home services: No Alcohol intake: never Patient Tobacco Use Status: Former Tobacco user Cigarettes Per Day: 10 Years Smoked: 10 service: No Current occupational status: employed Review of Systems Const All systems reviewed & are unremarkable except as noted in HPI and below ENT Denies dizziness Card Denies chest pain, Denies chest pain at rest, Denies chest pain with activity, Denies rapid heart rate, Denies pedal edema, Denies edema, Denies leg edema, Denies lightheadedness, Denies palpitations, Denies dyspnea, Denies dyspnea on exertion and Denies orthopnea Resp Denies cough, Denies dyspnea and Denies dyspnea on exertion GI Denies hematochezia and Denies change in stool character Musc Denies abnormal gait, Denies limited range of motion, Denies muscle cramps, Denies muscle weakness, Denies numbness, Denies radiating pain into limb, Denies stiffness and Denies tingling Neuro Denies abnormal gait, Denies dizziness, Denies numbness and Denies tingling Endo Denies palpitations Physical Exam Vital Signs: Last Vital Signs Pulse 67 01/25/24 09:23 BP 114/52 L 01/25/24 09:23 BMI result Body Mass Index 40.9 Const General: cooperative, healthy appearing, comfortable and no acute distress Orientation/consciousness: patient oriented x3 Neck Neck: Yes normal visual inspection Resp Effort & Inspection: normal respiratory effort Auscultation: clear to auscultation bilaterally, no rales, no rhonchi and no wheezes Cardio Jugular venous distension: no JVD Rate: regular rate Rhythm: regular rhythm Heart sounds: S1 normal heart sound present, S2 normal heart sound present, no murmurs and no rubs Neuro General: patient oriented x3 Extrem General: Yes normal to inspection, No no pedal edema and No calf tenderness Psych Appearance: grossly normal Mental Status: mental status grossly normal Speech and movement: Normal speech and movement present Office Procedures EKG Details: Today, read by me accelerated junctional rhythm versus ectopic atrial rhythm, nonspecific T-wave abnormality, rate 70, QTC 410 milliseconds [id number], Complete Assessment & Plan Assessment & Plan (1) Junctional tachycardia: Code(s): I47.1 - Supraventricular tachycardia Category: Medical Plan: History of junctional tachycardia. Previous seen in our office 09/12/2020. Then not seen again until her visit on 05/25/2023. Has been on metoprolol 25 mg t.i.d. over the last few years. She recently underwent a colonoscopy and reported having issues with junctional tachycardia and irregular heartbeat during her test. Notes of the procedure reviewed including anesthesia record and I do not see any tachycardic rates. There are strips scanned which show PACs and PVCs. On follow-up visit an EKG showed accelerated junctional rhythm, rate 97, 1 PVC. Holter monitor done on 06/02/2023 for 3 days shows sinus rhythm with average heart rate 95, frequent PACs 5.6% of time, bursts of SVT, longest 25 beats at max rate of 186, 1 episode of 4 beat NSVT, rate 157. Last echo done 10/24/2020 showed EF 65-70%, no valve abnormality. Following Holter results her metoprolol was changed to 50 mg b.i.d.. Today she reports that she has been doing well with no concerning heart palpitations. EKG done today shows ectopic atrial rhythm versus accelerated junctional rhythm nonspecific T-wave abnormality, similar P-wave findings compared to prior EKG, rate 70. At this time will have her remain on current metoprolol dose. Reviewed reduction in stimulants, getting adequate rest, maintaining good hydration. Cardiology follow-up in 4 months, sooner if needed. Will check Holter prior to that visit. (2) Essential hypertension: Code(s): I10 - Essential (primary) hypertension Category: Medical Plan: History of hypertension. Well controlled at present time. No medication changes made. (3) SVT (supraventricular tachycardia): Code(s): I47.10 - Supraventricular tachycardia, unspecified Category: Medical Plan: As above Plan Time spent on chart review, documentation, interview assessment Orders: Orders ECG 3 day holter monitor 05/10/24 I47.1 - Supraventricular tachycardia, I47.10 - Supraventricular tachycardia, unspecified Coding Level of Care Code Est Pt Level 3 (75681) Diagnoses Junctional tachycardia I47.1 Essential hypertension I10 SVT (supraventricular tachycardia) I47.10 CPT Codes EKG - CPT: 86302-[id number], Complete ([id number]) Time Spent (min) 24
== END 2024-01-25 09:50 | disposition home or self-care (01) ==
PROVIDERS: PCP Internal Medicine; Visit Provider Nurse Practitioner Family
DX: I47.10 Supraventricular tachycardia, unspecified (principal); I10 Essential (primary) hypertension
CPT/HCPCS: 93010; 99213

== ENCOUNTER → 2024-01-25 09:21 | Outpatient (BNVA) | payer MEDICARE, SELFPAY | PROVIDERS: PCP Internal Medicine; Visit Provider Nurse Practitioner Family | DX: I47.19 Other supraventricular tachycardia (principal); I10 Essential (primary) hypertension | CPT/HCPCS: 93005; 99212 ==

== ENCOUNTER → 2024-05-10 06:57 | Outpatient (REF) | payer MEDICARE, SELFPAY ==
--- NOTE | 2024-05-10 07:00 | HM_ITS ---
Conclusion: 1. Patient was monitored for total period of 3 days 2. Baseline was normal sinus rhythm with average heart rate of 82 beats per minute 3. No significant pauses noted 4. Frequent PACs noted , 4.4% of time 5. Occasional PVCs noted 6. No patient reported events MTDD
== END ==
LOC: HO.CARD 06:57
PROVIDERS: Visit Provider Nurse Practitioner Family
DX: I47.10 Supraventricular tachycardia, unspecified (principal)
CPT/HCPCS: 93242

== ENCOUNTER → 2024-05-10 07:00 | Outpatient (BNV) | payer MEDICARE, SELFPAY | PROVIDERS: Visit Provider Internal Medicine Cardiovascular Disease | DX: I49.1 Atrial premature depolarization (principal); I49.3 Ventricular premature depolarization | CPT/HCPCS: 93244 ==

== ENCOUNTER 2024-06-01 13:12 | Outpatient (AMB) | payer MEDICARE, SELFPAY ==
--- OUTSIDE RECORDS SUMMARY | 2024-06-01 13:15 | XMS_ITS ---
Author Organization [facility] Address [address] [place] [address] Care Team Providers Care Distributor Sales Manager Name Role Phone Kun Jones MD Primary Care Provider Ata Martinez Unavailable [phone] BobNaty stark Unavailable Unavailable REASON FOR VISIT screening,hx polyps,gerd,nausea, vomiting PROBLEMS Problem Type ICD Code Onset Dates Problem Status W/U Status Risk SNOMED Code Notes Problem Diverticulosis of large intestine without perforation or abscess without bleeding (K57.30) Active confirmed Diverticul ar disease of colon (171908976) Problem Gastroesophageal reflux disease (K21.9) Active confirmed Gastroesophagea l reflux disease (941106127) Problem Gastritis (K29.70) Active confirmed Gas tritis (3713884) Encounters Encounter Location Date Provider Diagnosis [facility] [place] [facility] [address] [place] [address] [id number] 04/26/2023 Ata Houston Encounter for screen ing colonoscopy Z12.11 ; Colon polyps K63.5 ; Diverticulosis of large intestine without perforation or abscess without bleeding K57.30 ; Other hemorrhoids K64.8 ; Gastroesophageal reflux disease K21.9 ; Hiatal hernia K44.9 ; Gastritis K29.70 ; Abdominal pain, generalized R10.84 and Nausea R11.0 ASSESSMENTS Encounter Date Diagnosis Assessment Notes Treatment Notes Treatment Clinical Notes 04/26/2023 Encounter for screen ing colonoscopy (ICD-10 - Z12.11) 04/26/2023 Colon polyps (ICD-10 - K63.5) 04/26/2023 Diverticulosis of la rge intestine without perforation or abscess without bleeding (ICD-10 - K57.30) 04/26/2023 Other hemorrhoids (ICD-10 - K64.8) 04/26/2023 Gastroesophageal ref lux disease (ICD-10 - K21.9) 04/26/2023 Hiatal hernia (ICD-1 0 - K44.9) 04/26/2023 Gastritis (ICD-10 - K29.70) 04/26/2023 Abdominal pain, generalized (ICD-10 - R10.84) 04/26/2023 Nausea (ICD-10 - R11.0) PLAN OF TREATMENT No Information
--- OUTSIDE RECORDS SUMMARY | 2024-06-01 13:15 | XMS_ITS | Patient Health Record ---
Author Organization [facility] Address [address] [place] [id number] Care Team Providers Care High School History Teacher Name Role Phone Robert NAVAS, Kun Primary Care Provider Ata Martinez Unavailable [phone] Naty Rojas Unavailable Unavailable ALLERGIES No Known Allergies REASON FOR REFERRAL No Information MEDICATIONS Medication SIG (Take, Route, Frequency, Duration) Notes Start Date End Date Status Lantus SoloStar 100 UNIT/ML INJECT 30 UNITS SUBCUTANEOUSLY DAILY Subcutaneous for 90 Active Metoprolol Tartrate 25 MG TAKE 1 TABLET BY MOUTH THREE TIMES A DAY WITH FOOD FOR 90 DAYS Oral for 90 Active metFORMIN HCl 1000 MG 1 tablet with meal s Orally for 30 day(s) Not-Taking Advil PM 200-38 MG 2 tablets at bedtime as needed Orally Once a day for 30 day(s) Active Lantus 100 UNIT/ML 0.02 ml Subcutaneous for 30 day(s) Not-Taking Victoza 18 MG/3ML 0.2 ml Subcutaneous for 30 day(s) Not-Taking Omeprazole 40 MG TAKE 1 CAPSULE BY MO UT EVERY DAY for 30 Active glipiZIDE 10 MG 1 tablet Orally for 30 day(s) Not-Taking Rosuvastatin Calcium 40 MG Oral for 90 Active Dexcom G6 Transmitter - USE DIRECTED ONE EVERY 3 MONTHS for 31 Active Lisinopril 10 MG Oral for 90 A ctive Lyumjev KwikPen 100 UNIT/ML INJECT 25 TO 50 UNITS SUBCUTANEOUSLY 3 TIMES A DAY 9 BOXS Subcutaneous for 90 Active SOCIAL HISTORY Sex Assigned At : Social History Observation Description Sex Assigned At Unknown PROBLEMS Problem Type ICD Code Onset Dates Problem Status W/U Status Risk SNOMED Code Notes Problem Colon cancer screening (Z12.11) Active confirmed 894940833 Problem Encounter for screening for malignant neoplasm of colon (Z12.11) Active confirmed 588703010 Problem History of adenomatous polyp of colon (Z86.010) Active confirmed 272886250 Problem Diverticulosis of large intestine without perforation or abscess without bleeding (K57.30) Active confirmed Diverticul ar disease of colon (550088891) Problem Gastroesophageal reflux disease (K21.9) Active confirmed Gastroesophagea l reflux disease (899432947) Problem Abdominal pain, epigastric (R10.13) Active confirmed 40179610 Problem Gastroesophageal reflux disease, esophagitis presence not specified (K21.9) Active confirmed 162625871 Problem Gastritis (K29.70) Active confirmed Gas tritis (7489472) Problem Irritable bowel syndrome with both constipation and diarrhea (K58.2) Active confirmed 88634152 Problem 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) Active confirmed 431506002 Problem Gastroesophageal reflux disease, unspecified whether esophagitis present (K21.9) Active confirmed 707716495 Problem Nausea and vomiting, unspecified vomiting type (R11.2) Active confirmed 16258732 Problem Vomiting, unspecified vomiting type, unspecified whether nausea present (R11.10) Active confirmed 157803368 Problem 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 [address] [place] [address] [id number] JEISON GUTIERREZ Self - patient is the insured MEDICAL (GENERAL) HISTORY Medical History History ICD Code IDDM Denies CA,CVA,Lung disease,renal disease HTN Interstitial cystitis with an Interstim fo the bladder Gallstones seen on an abdominal ultrasou nd in May,--s/p CCY Gastric lymphoma--Upper endo scopy in 06/2012 with the finding of a suspicious gastric ulcer--biopsies were consistent with a non-Hodgkin's malignant lymphoma, extranodal marginal zone type--she had a negative bone marrow biopsy after that--- she was treated with 20 sessions of XRT at [facility] with Dr. Vang--but no chemo--now followed by Dr. Rojas--neg PET-CT in 06/2013--neg. EUS with Dr. Ashton in 04/2013 and normal gastric emptying study in 01/2013; upper endoscopy in 04/2014 was negative for any residual lymphoma and gastric biopsies were negative for H. pylori--she does have a small hiatal hernia Colonoscopy in 06/2012 with the removal o f tubular adenomas Upper endoscopy in September of 2017 was negative for any sign of lymphoma. A small hiatal hernia was noted. Colonoscopy in September of 2017 revealed several small tubular adenomas that were removed and a nonbleeding angiodysplasia in the ascending colon Surgical History Surgery Date(Month/Year) Left and right foot surgery Right shoulder repair 2006 Bladder Interstim implant 2003 TOMER-age 18 Appy CCY Trigger finger
--- OUTSIDE RECORDS SUMMARY | 2024-06-01 13:15 | XMS_ITS ---
Author Organization [facility] Address [address] [place] [id number] Care Team Providers Care Morgue Keeper Name Role Phone Kun Jones MD Primary Care Provider Ata Martinez Unavailable [phone] Naty Rojas Unavailable Unavailable REASON FOR VISIT colonoscopy recall Encounters Encounter Location Date Provider Diagnosis [facility] [address] [place] [id number] 05/20/2023 Ata Houston PLAN OF TREATMENT No Information
--- OUTSIDE RECORDS SUMMARY | 2024-06-01 13:15 | XMS_ITS ---
Author Organization [facility] Address [address] [place] [address] Care Team Providers Care Full Time Name Role Phone Kun Jones MD Primary Care Provider Ata Martinez Unavailable [phone] Naty Rojas Unavailable Unavailable REASON FOR VISIT Hold Victoza injection on 11/5 PM and 11/6 AM Encounters Encounter Location Date Provider Diagnosis [facility] [address] [place] [address] 04/22/2023 Ata Houston PLAN OF TREATMENT No Information
--- NOTE | 2024-06-01 13:24 | A.OFFVIS_ITS ---
Vital Signs 06/01/24 13:25 Height 5 ft 5 in Weight 246 lb 14.684 oz BMI 41.1 BP 114/62 Blood Pressure Location Lt brachial Position Sitting Pulse 81 Pulse Source Pulse Oximeter Intake Visit Reasons: 4 mth f/up Senior User Experience Architect Required: No Allergies No Known Allergies [No Known Allergies*] Allergy (Verified 06/01/24 13:26) Medication List - Last Reconciled 06/01/24 by Jennifer Teresa, JACQUE-C blood-glucose meter,continuous (Dexcom G6 Hair Specialist) As directed blood-glucose sensor (Dexcom G6 Sensor device) As directed every 10 days blood-glucose transmitter (Dexcom G6 Transmitter device) As directed one every 3 months insulin glargine (Lantus Solostar U-100 Insulin) 30 units subcut DAILY insulin lispro-aabc (Lyumjev KwikPen U-100 Insulin) 25 - 50 units subcut TID lisinopril 20 mg PO DAILY metoprolol tartrate 50 mg PO BID 90 days omeprazole 40 mg PO DAILY pen needle, diabetic As directed rosuvastatin 40 mg PO DAILY HPI HPI 4 mth f/up: Details: Adelita is a 63 year-old female past medical history of hypertension, hyperlipidemia, diabetes, morbid obesity, gastric lymphoma, junctional tachycardia who presents for follow-up. Today she reports that she has been doing well since last visit in January. She has not noticed any heart palpitations, dizziness, lightheadedness, presyncope, syncope, falls. No chest discomfort at rest or with activity. No shortness of breath, PND, orthopnea or edema. 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 She does have help coming in the home. She also works part-time in quality lead. She reports having some fatigue and is very active during each day. [facility] Medical History Trigger finger Gallstone Interstitial cystitis Diabetes Obesity due to excess calories Junctional tachycardia Gastric lymphoma Hyperlipidemia LDL goal <100 Essential hypertension Surgical History History of foot surgery Hx of shoulder surgery Hx of appendectomy Hx of colonoscopy Hx of hysterectomy Family History Father Cancer Mother Dementia Maternal Aunt Diabetes Maternal Uncle Diabetes Social History Household Members: Family Household Members Other:: lives with mother who she takes care of Housing: House Are you a primary primary care nurse practitioner to a significant other at home: Yes (mother) Do you presently have visiting nurse or other home services: No Alcohol intake: never Patient Tobacco Use Status: Former Tobacco user Cigarettes Per Day: 10 Years Smoked: 10 service: No Current occupational status: employed Review of Systems Const All systems reviewed & are unremarkable except as noted in HPI and below Reports fatigue ENT Denies dizziness Card Denies chest pain, Denies chest pain at rest, Denies chest pain with activity, Denies rapid heart rate, Denies pedal edema, Denies edema, Denies leg edema, Denies lightheadedness, Denies palpitations, Denies dyspnea, Denies dyspnea on e xertion and Denies orthopnea Resp Denies cough, Denies dyspnea and Denies dyspnea on exertion GI Denies hematochezia and Denies change in stool character Musc Denies abnormal gait, Denies limited range of motion, Denies muscle cramps, Denies muscle weakness, Denies numbness, Denies radiating pain into limb, Denies stiffness and Denies tingling Neuro Denies abnormal gait, Denies dizziness, Denies numbness and Denies tingling Endo Reports fatigue and Denies palpitations Physical Exam Vital Signs: Last Vital Signs Pulse 81 06/01/24 13:25 BP 114/62 06/01/24 13:25 BMI result Body Mass Index 41.1 Const General: cooperative, healthy appearing, comfortable and no acute distress Orientation/consciousness: patient oriented x3 Neck Neck: Yes normal visual inspection Resp Effort & Inspection: normal respiratory effort Auscultation: clear to auscultation bilaterally, no rales, no rhonchi and no wheezes Cardio Jugular venous distension: no JVD Rate: regular rate Rhythm: regular rhythm Heart sounds: S1 normal heart sound present, S2 normal heart sound present, no murmurs and no rubs Neuro General: patient oriented x3 Extrem General: Yes normal to inspection, No no pedal edema and No calf tenderness Psych Appearance: grossly normal Mental Status: mental status grossly normal Speech and movement: Normal speech and movement present Assessment & Plan Assessment & Plan (1) Junctional tachycardia: Code(s): I47.1 - Supraventricular tachycardia Category: Medical Plan: History of junctional tachycardia. Previous seen in our office 09/12/2020. Then not seen again until her visit on 05/25/2023. Has been on metoprolol 25 mg t.i.d. over the last few years. She underwent a colonoscopy 04/2023 and reported having issues with junctional tachycardia and irregular heartbeat during her test. Notes of the procedure reviewed including anesthesia record and I do not see any tachycardic rates. There are strips scanned which show PACs and PVCs. On follow-up visit an EKG showed accelerated junctional rhythm, rate 97, 1 PVC. Holter monitor done on 06/02/2023 for 3 days shows sinus rhythm with average heart rate 95, frequent PACs 5.6% of time, bursts of SVT, longest 25 beats at max rate of 186, 1 episode of 4 beat NSVT, rate 157. Last echo done 10/24/2020 showed EF 65-70%, no valve abnormality. Following Holter results her metoprolol was changed to 50 mg b.i.d.. Holter monitor done on 05/10/2024 for 3 days shows sinus rhythm with average heart rate 82, frequent PACs 4.4%, occasional PVCs. Today she reports that she has been doing well with no concerning heart palpitations. Heart tones are very regular on examination, rate 80. At this time will have her continue on current metoprolol dose. Reviewed reduction in stimulants, getting adequate rest, maintaining good hydration. Cardiology follow-up in 6 months, sooner if needed. Will check EKG at that visit. (2) Essential hypertension: Code(s): I10 - Essential (primary) hypertension Category: Medical Plan: History of hypertension. Well controlled at present time. No medication changes made. She tells me that her lisinopril dose was recently increased from 10 mg daily up to 20 mg daily. (3) SVT (supraventricular tachycardia): Code(s): I47.10 - Supraventricular tachycardia, unspecified Category: Medical Plan: As above. Clinically no recent episodes. Plan Time spent on chart review, documentation, interview assessment Coding Level of Care Code Est Pt Level 4 (94961) Complex EM visit Add On G2211 Diagnoses Junctional tachycardia I47.1 Essential hypertension I10 SVT (supraventricular tachycardia) I47.10 Time Spent (min) 28
[2024-06-01 13:25] VITALS: BP 114/62; PULSE 81; BMI 41.1
== END 2024-06-01 13:51 | disposition home or self-care (01) ==
PROVIDERS: PCP Internal Medicine; Visit Provider Nurse Practitioner Family
DX: I47.10 Supraventricular tachycardia, unspecified (principal); I10 Essential (primary) hypertension
CPT/HCPCS: 99214; G2211

== ENCOUNTER → 2024-06-01 13:12 | Outpatient (BNVA) | payer MEDICARE, SELFPAY | PROVIDERS: PCP Internal Medicine; Visit Provider Nurse Practitioner Family | DX: I47.10 Supraventricular tachycardia, unspecified (principal); I47.19 Other supraventricular tachycardia; I10 Essential (primary) hypertension | CPT/HCPCS: 99212 ==

== ENCOUNTER 2024-11-30 10:18 | Outpatient (AMB) | payer MEDICARE, SELFPAY ==
[2024-11-30 10:22] VITALS: BP 120/68; PULSE 65; BMI 41.6
--- NOTE | 2024-11-30 10:22 | A.OFFVIS_ITS ---
Vital Signs 11/30/24 10:22 Height 5 ft 5 in Weight 250 lb BMI 41.6 BP 120/68 Blood Pressure Location Lt brachial Position Sitting Pulse 65 Pulse Source Monitor Intake Visit Reasons: 6 mth fu Allergies No Known Allergies [No Known Allergies*] Allergy (Verified 11/02/24 08:23) Medication List - Last Reconciled 11/30/24 by MARI Kaufman blood-glucose sensor (Dexcom G6 Sensor device) As directed every 10 days blood-glucose transmitter (Dexcom G6 Transmitter device) As directed one every 3 months blood-glucose,log marker,cont (Dexcom G6 Headlight Adjuster) As directed insulin glargine (Lantus Solostar U-100 Insulin) 30 units subcut DAILY insulin lispro-aabc (Lyumjev KwikPen U-100 Insulin) 25 - 50 units subcut TID lisinopril 20 mg PO DAILY metoprolol tartrate 50 mg PO BID omeprazole 40 mg PO DAILY pen needle, diabetic As directed rosuvastatin 40 mg PO DAILY HPI HPI 6 mth fu: Details: Adelita is a 63 year-old female past medical history of hypertension, hyperlipidemia, diabetes, morbid obesity, gastric lymphoma, junctional tachycardia who presents for follow-up. Today she is here for follow-up for atrial tachycardia and hypertension. Blood pressure stable at 120/68 mmHg and heart rate 65 b/min with Metoprolol Tartrate 50 mg BID and Lisinopril. Reports ankle swelling worsening during the day, reduces with elevation. Plans to start using compression stockings. Holter monitor on 05/10/2024 indicated sinus rhythm, frequent PACs (4.4%), occasional PVCs. Echo in 2020 noted normal EF, mild mitral calcification. EKG today SR with one PAC. Reports high stress levels with the care of elderly mother and work responsibilities. Remains physically active throughout the day. [facility] Medical History Trigger finger Gallstone Interstitial cystitis Diabetes Obesity due to excess calories Junctional tachycardia Gastric lymphoma Hyperlipidemia LDL goal <100 Essential hypertension Surgical History History of foot surgery Hx of shoulder surgery Hx of appendectomy Hx of colonoscopy Hx of hysterectomy Family History Father Cancer Mother Dementia Maternal Aunt Diabetes Maternal Uncle Diabetes Social History Household Members: Family Household Members Other:: lives with mother who she takes care of Housing: House Are you a primary long term care social worker to a significant other at home: Yes (mother) Do you presently have visiting nurse or other home services: No Alcohol intake: never Patient Tobacco Use Status: Former Tobacco user Cigarettes Per Day: 10 Years Smoked: 10 service: No Current occupational status: employed Review of Systems Const All systems reviewed & are unremarkable except as noted in HPI and below Denies weakness ENT Denies dizziness Card Denies chest pain, Denies chest pain with activity, Denies syncope, Denies rapid heart rate, Denies pedal edema, Denies edema, Denies leg edema, Denies lightheadedness, Denies palpitations, Denies dyspnea, Denies dyspnea on exertion and Denies orthopnea Resp Denies cough, Denies dyspnea and Denies dyspnea on exertion GI Denies hematochezia and Denies change in stool character Musc Denies abnormal gait, Denies muscle cramps, Denies muscle weakness, Denies numbness, Denies radiating pain into limb and Denies tingling Neuro Denies abnormal gait, Denies dizziness, Denies syncope, Denies numbness, Denies tingling and Denies weakness Endo Denies palpitations Physical Exam Vital Signs: Last Vital Signs Pulse 65 11/30/24 10:22 BP 120/68 11/30/24 10:22 BMI result Body Mass Index 41.6 Const General: cooperative, healthy appearing, comfortable and no acute distress Orientation/consciousness: patient oriented x3 Neck Neck: Yes normal visual inspection Resp Effort & Inspection: normal respiratory effort Auscultation: clear to auscultation bilaterally, no rales, no rhonchi and no wheezes Cardio Jugular venous distension: no JVD Rate: regular rate Rhythm: regular rhythm Heart sounds: S1 normal heart sound present, S2 normal heart sound present, no murmurs and no rubs Neuro General: patient oriented x3 Extrem General: Yes normal to inspection, No no pedal edema and No calf tenderness Psych Appearance: grossly normal Mental Status: mental status grossly normal Speech and movement: Normal speech and movement present Office Procedures EKG Details: Today, read by me, sinus rhythm 1 PAC, nonspecific T-wave abnormality, rate 65, QTC 409 milliseconds [id number], Complete Assessment & Plan Assessment & Plan (1) Junctional tachycardia: Code(s): I47.1 - Supraventricular tachycardia Category: Medical Plan: History of junctional and atrial tachycardia, now suppressed with the use of Metoprolol. Last Holter monitor done on 05/10/2024 for 3 days shows sinus rhythm with average heart rate 82, frequent PACs 4.4%, occasional PVCs. Last echocardiogram 10/24/2020 showed EF 65-70%, mild mitral annular calcification. EKG today shows sinus rhythm with 1 Pac, rate 65. Doing well without any concerning heart palpitations. Continue metoprolol. Reviewed reduction in stimulants, getting adequate rest, maintaining good hydration. Cardiology follow-up in 1 year, sooner if needed. (2) Essential hypertension: Code(s): I10 - Essential (primary) hypertension Category: Medical Plan: Blood pressure goal less than 130/80. Well controlled at present time. No medication changes made. Continue metoprolol and lisinopril. (3) SVT (supraventricular tachycardia): Code(s): I47.10 - Supraventricular tachycardia, unspecified Category: Medical Plan: As above. Clinically no recent episodes. Plan We reviewed the management of atrial tachycardia, emphasizing the stability observed with the current medication regimen. The importance of maintaining blood pressure was reiterated, and the patient's good control on Lisinopril was acknowledged. Compression stockings for peripheral edema were discussed, including proper timing for application, associated discomfort, and signs of increased swelling that would necessitate reevaluation. The conversation highlighted the patient?s proactive steps needed during travel and possible stressors, like her upcoming audit and family concerns, for which supportive measures were considered. Follow-up guidelines were provided, recommending an earlier visit if any cardiovascular symptoms developed. Patient Instructions: - Continue taking Metoprolol, Lisinopril, and Rosuvastatin as prescribed. - Start wearing compression stockings in the morning to help control ankle swelling. - Monitor for any swelling, chest pain, palpitations, or breath shortness, and seek medical help if they occur. - Continue routine follow-ups with your primary care provider. - Return for a follow-up in one year unless new symptoms arise. Patient was informed and verbally consented to the use of an ambient scribe for clinic note documentation during this visit. Visit time spent on chart review, interview, assessment, orders, documentation. Coding Level of Care Code Est Pt Level 4 (47270) Diagnoses Junctional tachycardia I47.1 Essential hypertension I10 SVT (supraventricular tachycardia) I47.10 CPT Codes EKG - CPT: [id number]-[id number], Complete ([id number]) Time Spent (min) 28
== END 2024-11-30 10:55 | disposition home or self-care (01) ==
LOC: HO.HCS 10:19
PROVIDERS: PCP Internal Medicine; Visit Provider Nurse Practitioner Family
DX: I47.10 Supraventricular tachycardia, unspecified (principal); I10 Essential (primary) hypertension
CPT/HCPCS: 93010; 99214

== ENCOUNTER → 2024-11-30 10:18 | Outpatient (BNVA) | payer MEDICARE, SELFPAY | PROVIDERS: PCP Internal Medicine; Visit Provider Nurse Practitioner Family | DX: I47.10 Supraventricular tachycardia, unspecified (principal); I10 Essential (primary) hypertension; Z79.899 Other long term (current) drug therapy | CPT/HCPCS: 93005; 99212 ==